=== PATIENT | male | born 1985 | race Two or more races ===

== ENCOUNTER 2024-09-27 20:35 | Emergency (ER) | payer MEDICAID, SELFPAY ==
[2024-09-27 20:36] VITALS: BMI 31.0
[2024-09-27 21:12] VITALS: BP 142/94; PULSE 71; RESP 18; TEMP 36.6; O2SAT 100
--- NOTE | 2024-09-27 21:22 | EDNOTE_ITS ---
ED Headache RME/HPI General Chief Complaint: Headache Stated Complaint: GLASS FELL ON HEAD Time Seen by Provider: 09/27/24 20:53 Arrival date/time: 09/27/24 20:35 38-year-old male reports with complaints of a head injury. Patient states today shower door fell on his head shattering. He did not sustain any cuts he denies loss of consciousness nausea vomiting dizziness blurred vision ringing in ears weakness or fatigue or neck pain. Patient says he simply has a headache particularly in the spot of contact. Patient denies taking any medications for symptoms Limitations: no limitations Related Data Allergies Allergy/AdvReac Type Severity Reaction Status Date / Time No Known Allergies Allergy Verified 09/27/24 20:37 Review of Systems Constitutional Constitutional: Denies fatigue, Denies frequent falls and Reports headache(s) Eyes Eyes: Denies change in vision and Denies diplopia ENT Ears, Nose, Mouth, and Throat: Reports headache(s) and Denies neck pain Cardiovascular Cardiovascular: Denies chest pain, Denies dyspnea and Denies syncope Respiratory Respiratory: Denies dyspnea and Denies pain on inspiration Gastrointestinal Gastrointestinal: Denies nausea and Denies vomiting Musculoskeletal Musculoskeletal: Denies back pain and Denies neck pain Integumentary/Breasts Skin/Breast: Denies unusual bruising and Denies wounds Neurologic Neurologic: Denies behavioral changes, Denies convulsions, Denies localized weakness, Denies frequent falls, Reports headache(s), Denies memory loss and Denies syncope Psychiatric Psychiatric: Denies behavioral changes, Denies change in appetite and Denies memory loss Endocrine Endocrine: Denies fatigue Hematologic/Lymphatic Hematologic/Lymphatic: Denies easy bleeding and Denies easy bruising Past Medical History Past Medical History CARDIAC: Positive Cardiac Disorders and Hypertension; Negative Congestive Heart Failure RESPIRATORY: Negative Chronic Obstructive Pulmonary Disease (COPD) GENITOURINARY: Negative Renal Disease ENDOCRINE: Negative Diabetes Mellitus Type 1 or Diabetes Mellitus Type 2 Social History SMOKING STATUS: Never smoker ED Exam General Limitations: Present no limitations General appearance: Present alert and in no apparent distress Head Head exam: Present atraumatic and normocephalic Eye Eye exam: Present normal appearance, PERRL and EOMI ENT ENT exam: Present normal exam, normal oropharynx and mucous membranes moist Neck Neck exam: Present normal inspection, full ROM and trachea midline Chest Chest inspection: Present normal inspection and symmetric chest wall rise Respiratory Respiratory exam: Present normal lung sounds bilaterally Cardiovascular Cardiovascular exam: Present regular rate, normal rhythm and normal heart sounds Abdominal Exam Abdominal exam: Present soft and normal bowel sounds Extremities Exam Extremities exam: Present normal inspection and full ROM Back Exam Back exam: Present normal inspection and full ROM Neurological Exam Neurological exam: Present alert, oriented X3 and CN II-XII intact Psychiatric Psychiatric exam: Present normal affect and normal mood Skin Skin exam: Present warm, dry, intact and normal color Course Course Course Narrative: 38-year-old male reports with complaints of head injury after a door fall onto his head. Patient has a normal neurological exam as well as physical exam he has no evidence of concussion as he reports no nausea or vomiting no vision changes and no loss of consciousness therefore imaging is not warranted at this time. Patient is stable nontoxic-appearing with stable vital signs and will be discharged with advice to take medication such as Tylenol applying ice to his head getting plenty of rest and return to the emergency department if symptoms should worsen patient verbalized understanding Quality Measures none Vital Signs Vital signs: Vital Signs Temperature 98 F 09/27/24 21:12 Pulse Rate 71 09/27/24 21:12 Respiratory Rate 18 09/27/24 21:12 Blood Pressure 142/94 H 09/27/24 21:12 Pulse Oximetry (%) 100 09/27/24 21:12 Oxygen Delivery Method Room Air 09/27/24 21:12 Headache Patient data External records reviewed:: None Clinical information provided by:: patient Social determinants that could affect healthcare access:: none Patient has the following chronic illnesses:: none How is presenting disease/condition affected by chronic disease/condition?: no chronic disease Evaluation data The following diagnostics were reviewed and interpreted by me:: other (specify) Lab and/or radiology exams considered but not ordered:: none Interpretation Summary: n/a Medications / Prescriptions Medications or Prescriptions considered but not ordered:: n/a Medication administrations:: none Consultations Consultation(s) initiated? (list below): No Diagnosis Differential diagnosis headache: migraine and tension headache Most likely diagnosis given after review of the tests above:: Scalp contusion Admission Indicated Admission indicated?: not indicated Admission Request Was there a request for admission?: No Disposition Plan Disposition Plan: Discharge Discharge Attestation Discharge Attestation: The patient and all family members were given an opportunity to ask questions and understood the discharge instructions. Discharge instructions specifically effects, indications for sooner follow up or return to the emergency department, and the expected course of current diagnosis. Patient condition: Stable Discharge Plan Plan Patient Disposition: HOME (Self Care) Problem List Clinical Impression: Contusion of scalp Patient/Caregiver Discharge Instructions Discharge Activity: activity as tolerated Education Materials: ED Head Injury (Adult) Additional Instructions: Take medication such as Tylenol for pain apply ice packs to the wound for 20 minutes and at least 20 minutes off before a second application. Hydrate well and you may go to sleep if you are sleepy but have someone wake you in 45 min to be sure you?re ok. If no problems you are allowed to return to sleep.? If someone notices you becoming lethargic or unresponsive, if there is a change in your behavior, vomiting, or if you feel short of breathe call 911 immediately Print Language: Upper Sorbian Stand Alone Forms: Arianna Award Info., Patient Portal Info Letter
== END 2024-09-27 22:05 | disposition home or self-care (01) ==
PROVIDERS: Emergency Provider Emergency Medicine; PCP Family Medicine
DX: S00.03XA Contusion of scalp, initial encounter (principal); W20.8XXA Other cause of strike by thrown, projected or falling object, initial encounter
CPT/HCPCS: 99281